=== PATIENT | female | born 1940 | race Hispanic/Latino ===

== ENCOUNTER 2017-04-27 14:27 | Inpatient (IN) | payer OTHER ==
[~2017-04-27] VITALS: Ht 157.5 cm; Wt 70.5 kg
[~2017-04-27 14:27] MED LIST: AMIO200T2 PO; ASPI-1005 PO; ATOR40TA69 PO; Acetaminophen PO; CARV3.1262 PO; CLOP75TA14 PO; DOCU-275 PO; FOLI0.8T22 PO; FURO20TA6 GT; FURO40TA7 PO; GLIP-196 PO; GLUC1KIT IM; INSREG SQ; INSU100V12 SQ; LORA0.5T83 PO; METO2.5T7 PO; MOM30 PO; PANT40TA25 PO; POTA20TA12 PO; TRAM50TA2 PO
[2017-04-27] MEDS ORDERED: IPRATROPIUM/ALBUTEROL SULFATE 3 ML SOLUTION IH ONE ×2 (15:05→18:37)
[2017-04-27 16:03] LABS: BASOPHILS % (AUTO) 0.5 % (0.0-5.0); EOSINOPHILS % (AUTO) 0.1 % (0.0-8.0); HEMATOCRIT 33.4 % (36-48); LYMPHOCYTES % (AUTO) 14.1 % (21.0-51.0); MEAN CORPUSCULAR HEMOGLOBIN 30.1 pg (27.0-33.0); MEAN CORPUSCULAR HGB CONC 35.2 g/dL (32.0-36.0); MEAN CORPUSCULAR VOLUME 85.6 fL (79-99); MONOCYTES % (AUTO) 6.6 % (3.0-13.0); NEUTROPHILS % (AUTO) 78.7 % (40.0-77.0); NUCLEATED RED BLOOD CELLS 0.1 % (0.0-0.19); PLATELET COUNT (AUTO) 195 K/uL (130-400); RED CELL DISTRIBUTION WIDTH 13.5 % (11.0-15.5)
[2017-04-27 16:21] LABS: CREATININE 1.5 mg/dL (0.5-1.5); POTASSIUM 5.3 mmol/L (3.5-5.1)
[2017-04-27 16:35] LABS: ALBUMIN 3.2 g/dL (3.5-5.0); BILIRUBIN,DIRECT 0.1 mg/dL (0.0-0.3); BILIRUBIN,TOTAL 0.7 mg/dL (0.2-1.0); CREATINE KINASE MB 7.2 ng/mL (0.5-3.6); TOTAL PROTEIN, SERUM 6.9 g/dL (6.0-8.3)
[2017-04-27] MEDS ORDERED: CEFTRIAXONE SODIUM 1 GM ONE (16:46)
[2017-04-27] MEDS ORDERED: AZITHROMYCIN 500MG+NS 250ML 250 ML IV ONE (16:55)
[2017-04-27] MEDS ORDERED: ONDANSETRON HCL 4 MG/2 ML VIAL IV PRN (17:45)
[2017-04-27] MEDS ORDERED: ACETAMINOPHEN 325 MG TAB PO PRN ×2 (17:45)
[2017-04-27] MEDS ORDERED: NITROGLYCERIN 0.4 MG SL TAB SL PRN (17:45)
[2017-04-27] MEDS ORDERED: MAG HYDROX/AL HYDROX/SIMETH ES 30 ML SUSP UDCUP PO PRN (17:45)
[2017-04-27] MEDS ORDERED: LACTULOSE 20 GM/30 ML UDCUP PO PRN (17:45)
[2017-04-27] MEDS ORDERED: LEVOFLOXACIN 500 MG/D5W 100 ML 100 ML IV SCH (17:45)
[2017-04-27] MEDS: LOSARTAN 50 MG TABLET PO SCH (18:00)
[2017-04-27] MEDS: ISOSORBIDE MONO 30MG TAB SR PO SCH (18:00)
[2017-04-27] MEDS: CLOPIDOGREL BISULFATE 75 MG TAB PO SCH (18:00)
[2017-04-27] MEDS: ASPIRIN 81 MG EC TAB PO SCH (18:00)
[2017-04-27] MEDS ORDERED: ASPIRIN 81MG TAB.CHEW ONE (18:14)
[2017-04-27] MEDS ORDERED: CLOPIDOGREL BISULFATE 75 MG TAB ONE (18:15)
[2017-04-27] MEDS ORDERED: LOSARTAN 50 MG TABLET ONE (18:15)
[2017-04-27] MEDS ORDERED: ISOSORBIDE MONO 30MG TAB SR PO ONE (18:15)
[2017-04-27] MEDS: IPRATROPIUM/ALBUTEROL SULFATE 3 ML SOLUTION IH PRN (18:40)
[2017-04-27] MEDS: CARVEDILOL 6.25 MG TABLET PO SCH (21:00)
[2017-04-27] MEDS: FAMOTIDINE/PF 20 MG/2 ML VIAL IV SCH (21:00)
[2017-04-28] VITALS (8 sets, daily range): BP systolic 102–129; BP diastolic 48–71
[2017-04-28] MEDS ORDERED: LEVOFLOXACIN 500 MG/D5W 100 ML 100 ML ONE (00:06)
[2017-04-28] MEDS ORDERED: CARVEDILOL 12.5 MG TABLET PO ONE (00:06)
[2017-04-28] MEDS ORDERED: FAMOTIDINE/PF 20 MG/2 ML VIAL IV ONE (00:06)
[2017-04-28] MEDS ORDERED: POTASSIUM CHLORIDE 20MEQ/100ML 100 ML IV PRN (02:00)
[2017-04-28] MEDS ORDERED: POTASSIUM CHLORIDE 10% ELIXIR 20 MEQ/15 ML UDCUP PO PRN (02:00)
[2017-04-28] MEDS ORDERED: DEXTROSE 50%-WATER 50 ML DISP.SYRIN IV PRN (02:00)
[2017-04-28] MEDS ORDERED: GLUCAGON 1MG KIT 1 MG ML IM PRN (02:00)
[2017-04-28] MEDS ORDERED: LIDOCAINE HCL-MPF 1% 2ML VIAL IVP PRN (02:00)
[2017-04-28] MEDS: IPRATROPIUM/ALBUTEROL SULFATE 3 ML SOLUTION IH PRN ×5 (06:30→21:37)
[2017-04-28] MEDS: INSULIN HUMULIN R 100 UNIT/ML 3ML SQ SCH ×4 (07:30→20:32)
[2017-04-28 07:57] LABS: CREATINE KINASE MB 3.6 ng/mL (0.5-3.6); CREATININE 1.7 mg/dL (0.5-1.5); POTASSIUM 4.2 mmol/L (3.5-5.1)
[2017-04-28 08:00] LABS: TROPONIN I 13.86 ng/mL (0.00-0.06)
[2017-04-28] MEDS ORDERED: POTA10TA14 PO (08:36)
[2017-04-28] MEDS ORDERED: NITR0.4T50 SL (08:36)
[2017-04-28] MEDS ORDERED: ISOS30TA6 PO (08:36)
[2017-04-28] MEDS ORDERED: METF500T6 PO (08:36)
[2017-04-28] MEDS ORDERED: CYAN50008 SL (08:36)
[2017-04-28] MEDS ORDERED: FURO20TA4 PO (08:36)
[2017-04-28] MEDS ORDERED: EZET10 PO (08:36)
[2017-04-28] MEDS ORDERED: MONT10TA24 PO (08:36)
[2017-04-28] MEDS ORDERED: MAGN400T40 PO (08:36)
[2017-04-28] MEDS ORDERED: FAMO20TA8 PO (08:36)
[2017-04-28] MEDS ORDERED: ROSU5TAB18 PO (08:36)
[2017-04-28] MEDS ORDERED: CHOL100018 PO (08:36)
[2017-04-28] MEDS: FAMOTIDINE/PF 20 MG/2 ML VIAL IV SCH ×2 (08:40→20:31)
[2017-04-28] MEDS: CARVEDILOL 6.25 MG TABLET PO SCH ×2 (08:40→20:32)
[2017-04-28] MEDS: CLOPIDOGREL BISULFATE 75 MG TAB PO SCH (08:40)
[2017-04-28] MEDS: ASPIRIN 81 MG EC TAB PO SCH (08:40)
[2017-04-28] MEDS: LOSARTAN 50 MG TABLET PO SCH (09:00)
[2017-04-28] MEDS: ISOSORBIDE MONO 30MG TAB SR PO SCH (09:00)
[2017-04-28] MEDS ORDERED: LEVOFLOXACIN 500 MG/D5W 100 ML 100 ML IV SCH (20:00)
[2017-04-28] MEDS: LEVOFLOXACIN 500 MG/D5W 100 ML 100 ML IV SCH (20:32)
[2017-04-29] MEDS: IPRATROPIUM/ALBUTEROL SULFATE 3 ML SOLUTION IH PRN ×6 (02:00→21:33)
[2017-04-29 03:30] VITALS: BP 104/52
[2017-04-29 04:38] LABS: HEMATOCRIT 29.4 % (36-48); MEAN CORPUSCULAR HGB CONC 35.5 g/dL (32.0-36.0); MEAN CORPUSCULAR VOLUME 84.6 fL (79-99); PLATELET COUNT (AUTO) 182 K/uL (130-400); RED BLOOD CELL COUNT(AUTO) 3.48 MIL/uL (4.00-5.50); RED CELL DISTRIBUTION WIDTH 13.6 % (11.0-15.5); WHITE BLOOD COUNT (AUTO) 7.8 K/uL (4.8-10.8)
[2017-04-29 04:49] LABS: CREATININE 1.7 mg/dL (0.5-1.5); POTASSIUM 3.8 mmol/L (3.5-5.1)
[2017-04-29 05:17] LABS: B-TYPE NATRIURETIC PEPTIDE 1580 pg/mL (0-100)
[2017-04-29] MEDS: INSULIN HUMULIN R 100 UNIT/ML 3ML SQ SCH ×4 (06:36→21:00)
[2017-04-29 07:39] VITALS: BP 112/60
[2017-04-29] MEDS: LOSARTAN 50 MG TABLET PO SCH (08:05)
[2017-04-29] MEDS: ISOSORBIDE MONO 30MG TAB SR PO SCH (08:05)
[2017-04-29] MEDS: ASPIRIN 81 MG EC TAB PO SCH (08:06)
[2017-04-29] MEDS: CARVEDILOL 6.25 MG TABLET PO SCH ×2 (08:06→21:04)
[2017-04-29] MEDS: CLOPIDOGREL BISULFATE 75 MG TAB PO SCH (08:06)
[2017-04-29] MEDS: FAMOTIDINE 20MG TAB 20 MG TAB PO SCH ×2 (08:19→21:04)
[2017-04-29] MEDS: GUAIFENESIN-DM 200/20 MG 10 ML PO PRN ×2 (09:05→14:14)
[2017-04-29 11:19] VITALS: BP 99/49
[2017-04-29 16:21] VITALS: BP 101/73
[2017-04-29] MEDS: LEVOFLOXACIN 500 MG/D5W 100 ML 100 ML IV SCH (19:37)
[2017-04-29 19:43] VITALS: BP 93/50
[2017-04-29] MEDS: LEVOFLOXACIN 250 MG/D5W 50ML 50 ML IVPB SCH (21:05)
[2017-04-29 23:33] VITALS: BP 102/51
[2017-04-30] VITALS (8 sets, daily range): BP systolic 100–123; BP diastolic 47–75
[2017-04-30] MEDS: IPRATROPIUM/ALBUTEROL SULFATE 3 ML SOLUTION IH PRN ×3 (01:09→21:52)
[2017-04-30 04:50] LABS: HEMATOCRIT 28.6 % (36-48); MEAN CORPUSCULAR HEMOGLOBIN 29.3 pg (27.0-33.0); MEAN CORPUSCULAR HGB CONC 34.9 g/dL (32.0-36.0); PLATELET COUNT (AUTO) 191 K/uL (130-400); RED BLOOD CELL COUNT(AUTO) 3.41 MIL/uL (4.00-5.50); RED CELL DISTRIBUTION WIDTH 13.8 % (11.0-15.5); WHITE BLOOD COUNT (AUTO) 8.5 K/uL (4.8-10.8)
[2017-04-30 05:07] LABS: ALBUMIN 2.5 g/dL (3.5-5.0); BILIRUBIN,DIRECT 0.1 mg/dL (0.0-0.3); BILIRUBIN,TOTAL 0.3 mg/dL (0.2-1.0); CREATININE 1.6 mg/dL (0.5-1.5); TOTAL PROTEIN, SERUM 6.1 g/dL (6.0-8.3)
[2017-04-30 05:16] LABS: B-TYPE NATRIURETIC PEPTIDE 1430 pg/mL (0-100)
[2017-04-30] MEDS: INSULIN HUMULIN R 100 UNIT/ML 3ML SQ SCH ×4 (06:26→21:12)
[2017-04-30] MEDS: ISOSORBIDE MONO 30MG TAB SR PO SCH (10:01)
[2017-04-30] MEDS: ASPIRIN 81 MG EC TAB PO SCH (10:02)
[2017-04-30] MEDS: CLOPIDOGREL BISULFATE 75 MG TAB PO SCH (10:02)
[2017-04-30] MEDS: LOSARTAN 50 MG TABLET PO SCH (10:02)
[2017-04-30] MEDS: CARVEDILOL 6.25 MG TABLET PO SCH ×2 (10:02→21:00)
[2017-04-30] MEDS: FAMOTIDINE 20MG TAB 20 MG TAB PO SCH ×2 (10:02→21:11)
[2017-04-30] MEDS ORDERED: INSULIN HUMULIN R 100 UNIT/ML 3ML SQ ONE (11:44)
[2017-04-30] MEDS: LEVOFLOXACIN 250 MG/D5W 50ML 50 ML IVPB SCH (21:11)
[2017-05-01 03:59] VITALS: BP 100/50
[2017-05-01 05:07] LABS: CREATININE 1.9 mg/dL (0.5-1.5); POTASSIUM 3.8 mmol/L (3.5-5.1)
[2017-05-01] MEDS: INSULIN HUMULIN R 100 UNIT/ML 3ML SQ SCH ×2 (05:56→12:01)
[2017-05-01] MEDS: POTASSIUM CHLORIDE 20 MEQ ERTAB PO PRN ×2 (06:17→08:24)
[2017-05-01 08:00] VITALS: BP 104/48
[2017-05-01] MEDS: FAMOTIDINE 20MG TAB 20 MG TAB PO SCH (08:33)
[2017-05-01] MEDS: ASPIRIN 81 MG EC TAB PO SCH (08:34)
[2017-05-01] MEDS: CARVEDILOL 6.25 MG TABLET PO SCH (08:35)
[2017-05-01] MEDS: CLOPIDOGREL BISULFATE 75 MG TAB PO SCH (08:35)
[2017-05-01] MEDS: LOSARTAN 50 MG TABLET PO SCH (08:36)
[2017-05-01] MEDS: ISOSORBIDE MONO 30MG TAB SR PO SCH (08:36)
[2017-05-01] MEDS ORDERED: FUROSEMIDE 20 MG TABLET PO SCH (09:00)
[2017-05-01] MEDS ORDERED: CLOP75TA14 PO (09:05)
[2017-05-01] MEDS ORDERED: LEVO250T2 PO (09:05)
[2017-05-01] MEDS ORDERED: LOSA50TA2 PO (09:05)
[2017-05-01 11:28] VITALS: BP 129/64
== END 2017-05-01 12:20 | disposition home or self-care (01) | DRG 280 ==
LOC: EDH 14:27 → OBSVTOIN 17:45 → EDHIP 17:45 → 2AH 04-28 00:20
PROVIDERS: ADMIT Family Medicine; ATTEND Family Medicine
DX: I21.4 Non-ST elevation (NSTEMI) myocardial infarction (principal); J18.9 Pneumonia, unspecified organism; E11.21 Type 2 diabetes mellitus with diabetic nephropathy; I13.0 Hypertensive heart and chronic kidney disease with heart failure and stage 1 through stage 4 chronic kidney disease, or unspecified chronic kidney disease; E11.51 Type 2 diabetes mellitus with diabetic peripheral angiopathy without gangrene; E11.65 Type 2 diabetes mellitus with hyperglycemia; I50.9 Heart failure, unspecified; E11.22 Type 2 diabetes mellitus with diabetic chronic kidney disease; E78.5 Hyperlipidemia, unspecified; I25.119 Atherosclerotic heart disease of native coronary artery with unspecified angina pectoris; I25.5 Ischemic cardiomyopathy; I49.3 Ventricular premature depolarization; I65.23 Occlusion and stenosis of bilateral carotid arteries; N18.3 Chronic kidney disease, stage 3 (moderate); I25.2 Old myocardial infarction; Z79.899 Other long term (current) drug therapy; Z90.710 Acquired absence of both cervix and uterus; Z95.0 Presence of cardiac pacemaker; Z95.5 Presence of coronary angioplasty implant and graft
CPT/HCPCS: 36415; 71046; 71250; 80048; 80076; 82550; 82553; 82948; 83605; 83874; 83880; 84484; 85025; 85027; 87040; 87804; 93005; 94640; 94664; 99291; J0456; J0696; J1815; J1956; J3490

== ENCOUNTER → 2017-07-26 | Outpatient (CLI) | payer OTHER ==
[~2017-07-26] MED LIST changes: -AMIO200T2 PO; +AMIO200T5 PO; -ATOR40TA69 PO; -Acetaminophen PO; +CHOL100018 PO; +CYAN50008 SL; -DOCU-275 PO; +EZET10 PO; +FAMO20TA8 PO; -FOLI0.8T22 PO; +FURO20TA4 PO; -FURO20TA6 GT; -FURO40TA7 PO; -GLUC1KIT IM; -INSREG SQ; -INSU100V12 SQ; +ISOS30TA6 PO; +LEVO250T2 PO; -LORA0.5T83 PO; +LOSA50TA2 PO; +MAGN400T40 PO; -METO2.5T7 PO; -MOM30 PO; +MONT10TA24 PO; +NITR0.4T50 SL; -PANT40TA25 PO; +POTA10TA14 PO; -POTA20TA12 PO; +ROSU5TAB11 PO; -TRAM50TA2 PO
== END | disposition home or self-care (01) ==
LOC: SHCH 14:58
PROVIDERS: ATTEND Internal Medicine Cardiovascular Disease
DX: I08.1 Rheumatic disorders of both mitral and tricuspid valves (principal); I27.20 Pulmonary hypertension, unspecified; Z95.0 Presence of cardiac pacemaker
CPT/HCPCS: 93306

== ENCOUNTER 2018-06-28 13:01 | Emergency (ER) | payer OTHER ==
[2018-06-28] MEDS ORDERED: ASPIRIN 325 MG TABLET ONE (13:31)
[2018-06-28 13:35] LABS: BASOPHILS % (AUTO) 0.7 % (0.0-5.0); EOSINOPHILS % (AUTO) 3.3 % (0.0-8.0); HEMATOCRIT 32.2 % (36-48); LYMPHOCYTES % (AUTO) 14.2 % (21.0-51.0); MEAN CORPUSCULAR HEMOGLOBIN 30.5 pg (27.0-33.0); MEAN CORPUSCULAR HGB CONC 33.8 g/dL (32.0-36.0); MEAN CORPUSCULAR VOLUME 90.4 fL (79-99); MONOCYTES % (AUTO) 6.4 % (3.0-13.0); NEUTROPHILS % (AUTO) 75.4 % (40.0-77.0); PLATELET COUNT (AUTO) 153 K/uL (130-400); RED BLOOD CELL COUNT(AUTO) 3.56 MIL/uL (4.00-5.50); RED CELL DISTRIBUTION WIDTH 13.4 % (11.0-15.5); WHITE BLOOD COUNT (AUTO) 9.4 K/uL (4.8-10.8)
[2018-06-28 14:13] LABS: CREATININE 3.2 mg/dL (0.5-1.5); POTASSIUM 4.7 mmol/L (3.5-5.1)
[2018-06-28 14:17] LABS: ALBUMIN 3.5 g/dL (3.5-5.0); BILIRUBIN,TOTAL 0.5 mg/dL (0.2-1.0); TOTAL PROTEIN, SERUM 7.2 g/dL (6.0-8.3)
[2018-06-28] MEDS ORDERED: METHYLPREDNISOLONE SOD SUCC 125MG/2ML VIAL ONE (14:21)
[2018-06-28 14:41] LABS: B-TYPE NATRIURETIC PEPTIDE 2360 pg/mL (0-100)
[2018-06-28] MEDS ORDERED: IPRATROPIUM/ALBUTEROL SULFATE 3 ML SOLUTION IH ONE (14:47)
[2018-06-28] MEDS ORDERED: FUROSEMIDE 10 MG/ML 4ML VIAL ONE (17:02)
== END 2018-06-28 17:25 | disposition home or self-care (01) ==
LOC: EDH 13:01
DX: I50.9 Heart failure, unspecified (principal); R06.00 Dyspnea, unspecified; I25.10 Atherosclerotic heart disease of native coronary artery without angina pectoris; E11.9 Type 2 diabetes mellitus without complications; E78.5 Hyperlipidemia, unspecified; Z95.1 Presence of aortocoronary bypass graft; Z90.710 Acquired absence of both cervix and uterus
CPT/HCPCS: 36415; 71045; 80053; 82550; 83880; 84484; 85025; 93005; 94640; 96374; 96375; 99285; J1940; J2930

== ENCOUNTER 2018-07-28 17:18 | Emergency (ER) | payer OTHER ==
[2018-07-28 17:57] LABS: BASOPHILS % (AUTO) 1.2 % (0.0-5.0); EOSINOPHILS % (AUTO) 3.3 % (0.0-8.0); HEMATOCRIT 32.6 % (36-48); LYMPHOCYTES % (AUTO) 15.4 % (21.0-51.0); MEAN CORPUSCULAR HEMOGLOBIN 29.6 pg (27.0-33.0); MEAN CORPUSCULAR HGB CONC 33.8 g/dL (32.0-36.0); MEAN CORPUSCULAR VOLUME 87.5 fL (79-99); MONOCYTES % (AUTO) 6.6 % (3.0-13.0); NEUTROPHILS % (AUTO) 73.5 % (40.0-77.0); PLATELET COUNT (AUTO) 185 K/uL (130-400); RED BLOOD CELL COUNT(AUTO) 3.73 MIL/uL (4.00-5.50); RED CELL DISTRIBUTION WIDTH 13.7 % (11.0-15.5); WHITE BLOOD COUNT (AUTO) 8.6 K/uL (4.8-10.8)
[2018-07-28 18:15] LABS: ALBUMIN 3.4 g/dL (3.5-5.0); BILIRUBIN,DIRECT 0.1 mg/dL (0.0-0.3); BILIRUBIN,TOTAL 1.1 mg/dL (0.2-1.0); CREATININE 3.4 mg/dL (0.5-1.5); POTASSIUM 4.9 mmol/L (3.5-5.1)
[2018-07-28 18:18] LABS: B-TYPE NATRIURETIC PEPTIDE 2210 pg/mL (0-100)
[2018-07-28] MEDS ORDERED: FUROSEMIDE 10 MG/ML 4ML VIAL ONE (19:35)
== END 2018-07-28 21:41 | disposition home or self-care (01) ==
LOC: EDH 17:18
DX: I11.0 Hypertensive heart disease with heart failure (principal); I50.9 Heart failure, unspecified; R06.00 Dyspnea, unspecified; E78.5 Hyperlipidemia, unspecified; E11.9 Type 2 diabetes mellitus without complications; I25.10 Atherosclerotic heart disease of native coronary artery without angina pectoris
CPT/HCPCS: 36415; 71045; 80048; 80076; 83880; 84484; 85025; 93005; 96374; 99285; J1940

== ENCOUNTER 2018-07-30 00:59 | Observation (INO) | payer OTHER ==
[~2018-07-30] VITALS: Ht 160 cm; Wt 66.2 kg
[2018-07-30 01:42] LABS: BASOPHILS % (AUTO) 1.5 % (0.0-5.0); EOSINOPHILS % (AUTO) 2.9 % (0.0-8.0); HEMATOCRIT 35.1 % (36-48); LYMPHOCYTES % (AUTO) 17.6 % (21.0-51.0); MEAN CORPUSCULAR HGB CONC 33.2 g/dL (32.0-36.0); MEAN CORPUSCULAR VOLUME 87.5 fL (79-99); MONOCYTES % (AUTO) 8.7 % (3.0-13.0); NEUTROPHILS % (AUTO) 69.3 % (40.0-77.0); PLATELET COUNT (AUTO) 188 K/uL (130-400); RED BLOOD CELL COUNT(AUTO) 4.01 MIL/uL (4.00-5.50); WHITE BLOOD COUNT (AUTO) 8.7 K/uL (4.8-10.8)
[2018-07-30 01:54] LABS: ALBUMIN 3.7 g/dL (3.5-5.0); BILIRUBIN,TOTAL 0.5 mg/dL (0.2-1.0); CREATININE 3.5 mg/dL (0.5-1.5); POTASSIUM 4.1 mmol/L (3.5-5.1); TOTAL PROTEIN, SERUM 7.2 g/dL (6.0-8.3)
[2018-07-30 01:57] LABS: INR 1.01 (0.85-1.15); PARTIAL THROMBOPLASTIN TIME 25.9 SEC (26.3-35.5); PROTHROMBIN TIME 10.6 SEC (9.6-11.6)
[2018-07-30 02:12] LABS: B-TYPE NATRIURETIC PEPTIDE 2260 pg/mL (0-100)
[2018-07-30] MEDS ORDERED: NITROGLYCERIN 1GM/1 INCH PACKET TD ONE (02:58)
[2018-07-30] MEDS ORDERED: ASPIRIN 325 MG TABLET ONE (02:58)
[2018-07-30] MEDS ORDERED: FUROSEMIDE 10 MG/ML 4ML VIAL ONE (02:58)
[2018-07-30] MEDS ORDERED: ZOLPIDEM TARTRATE 5 MG TAB PO PRN (03:00)
[2018-07-30] MEDS ORDERED: ACETAMINOPHEN-CODEINE 300/30MG TAB PO PRN (03:00)
[2018-07-30] MEDS ORDERED: ACETAMINOPHEN 325 MG TAB PO PRN (03:00)
[2018-07-30] MEDS ORDERED: GUAIFENESIN-DM 200/20 MG 10 ML PO PRN (03:00)
[2018-07-30] MEDS ORDERED: LACTULOSE 20 GM/30 ML UDCUP PO PRN (03:00)
[2018-07-30] MEDS ORDERED: ONDANSETRON HCL 4 MG/2 ML VIAL IV PRN (03:00)
[2018-07-30] MEDS ORDERED: HYDROMORPHONE 1 MG/1 ML AMP IV PRN (03:00)
[2018-07-30 03:03] LABS: APPEARANCE,URINE Clear (CLEAR); BILIRUBIN,URINE Negative (NEGATIVE); COLOR,URINE Yellow (YELLOW); GLUCOSE, URINE (UA) Negative (NEGATIVE); KETONES,URINE Negative (NEGATIVE); LEUKOCYTE ESTERASE ,URINE Large (NEGATIVE); NITRATE,URINE Negative (NEGATIVE); OCCULT BLOOD,URINE Negative (NEGATIVE); PH,URINE 7.5 (5.0-8.0); PROTEIN,URINE Negative (NEGATIVE); UROBILINOGEN,URINE 0.2 mg/dL (0.2-1.0)
[2018-07-30 03:30] VITALS: BP 153/81
--- NOTE | 2018-07-30 03:30 | NUR ---
ADMISSION. PT TRANSFERRED FROM ER INTO ROOM 430. PT AWAKE, ALERT AND RESPONSIVE, NO S/O PAIN OR DISCOMFORT AT THIS TIME. PT ORIENTED TO ROOM, CALL HUANG WITHIN REACH, BED IN LOWEST POSITION. Addendum: 07/30/18 at 0403 by DINO LAZARO RN Amended: Links added.
[2018-07-30 03:48] LABS: BACTERIA,URINE Few /HPF (None Seen); RBC,URINE None Seen /HPF (0-1); SQUAMOUS EPITHELIAL CELL,UR Moderate /HPF (0-2)
[2018-07-30] MEDS ORDERED: SACU1TAB PO (05:34)
[2018-07-30] MEDS ORDERED: ACAR25TA2 PO (05:34)
[2018-07-30] MEDS ORDERED: TRAZ-185 PO (05:34)
[2018-07-30] MEDS ORDERED: FOLI1TAB85 PO (05:34)
[2018-07-30] MEDS ORDERED: ALPR0.25 PO (05:34)
[2018-07-30] MEDS ORDERED: METO5TAB7 PO (05:34)
[2018-07-30] MEDS ORDERED: METO-391 PO (05:34)
[2018-07-30] MEDS ORDERED: NPH,100V SQ ×2 (05:38)
[2018-07-30] MEDS ORDERED: ALPRAZOLAM 0.25 MG TABLET PO PRN ×2 (05:45→14:00)
[2018-07-30] MEDS ORDERED: TRAZODONE HCL 50 MG TAB PO PRN (05:45)
[2018-07-30 08:15] VITALS: BP 117/56
[2018-07-30] MEDS ORDERED: ACARBOSE 25 MG TABLET PO SCH (09:00)
[2018-07-30] MEDS ORDERED: Metoprolol Succinate 50 MG PO SCH (09:00)
[2018-07-30] MEDS: Cholecalciferol (Vitamin D3) (Vitamin D3) 1,000 UNIT PO SCH ×2 (09:00→21:00)
[2018-07-30] MEDS ORDERED: LOSARTAN 50 MG TABLET PO SCH (09:00)
[2018-07-30] MEDS ORDERED: CYANOCOBALAMIN (VITAMIN B-12) 1,000 MCG TABLET PO SCH (09:00)
[2018-07-30] MEDS: Sacubitril/Valsartan (Entresto 24 mg-26 mg Tablet) PO SCH ×2 (09:00→21:00)
[2018-07-30] MEDS: INSULIN NPH 100 UNIT/ML 3ML SQ SCH (09:55)
[2018-07-30] MEDS: GLIPIZIDE XL 10MG TAB PO SCH ×2 (10:08→21:14)
[2018-07-30] MEDS: POTASSIUM CHLORIDE 10 MEQ/TAB.SA PO SCH (10:08)
[2018-07-30] MEDS: FAMOTIDINE 20MG TAB 20 MG TAB PO SCH (10:09)
[2018-07-30] MEDS: FUROSEMIDE 10 MG/ML 4ML VIAL IVP SCH (10:09)
[2018-07-30] MEDS: FOLIC ACID/VITAMIN B COMP W-C 1 MG CAPSULE PO SCH (10:09)
[2018-07-30 12:56] VITALS: BP 129/64
[2018-07-30] MEDS ORDERED: SENNOSIDES 8.6 MG TABLET PO SCH (14:00)
[2018-07-30 16:19] VITALS: BP 133/73
--- NOTE | 2018-07-30 16:30 | NUR ---
INITIAL MET W PT ALONE, AAOX3, LIVES W SPOUSE HENRI, WHO WILL PROVIDE TRANSPORT- PT STATES SHE DOES NOT DRIVE MUCH ANY MORE, IS INDEPENDENT OF ADLS, HAS A ROLLR WKR, AND A SHOWER CHAIR, HAS HOME HEALTH BUT DOES NOT REMEMBER THEIR NAME, DR. REESE SENT THEM, DCP IS HOME , CM TO FOLLOW Addendum: 07/30/18 at 1832 by JULIUS LOZOYA RN CM Amended: Links added.
[2018-07-30] MEDS ORDERED: INSULIN NPH 100 UNIT/ML 3ML SQ SCH (17:00)
[2018-07-30 19:05] VITALS: BP 125/68
[2018-07-30] MEDS: BUDESONIDE 0.5 MG/2 ML INH IH SCH (20:41)
[2018-07-30] MEDS: IPRATROPIUM/ALBUTEROL SULFATE 3 ML SOLUTION IH SCH (20:42)
[2018-07-30] MEDS: CARVEDILOL 3.125 MG TABLET PO SCH (21:15)
[2018-07-30 23:03] VITALS: BP 136/67
[2018-07-31] VITALS (7 sets, daily range): BP systolic 85–130; BP diastolic 42–65
[2018-07-31 04:04] LABS: ABG BASE EXCESS 5.8 mmol/L (-2.0-3.0); ABG HCO3 30.2 mmol/L (21.0-28.0); ABG OXYGEN SATURATION 96.2 % (95.0-99.0); ABG PCO2 43 mmHg (32-45)
[2018-07-31 05:40] LABS: HEMATOCRIT 30.7 % (36-48); MEAN CORPUSCULAR HEMOGLOBIN 29.2 pg (27.0-33.0); MEAN CORPUSCULAR HGB CONC 33.7 g/dL (32.0-36.0); MEAN CORPUSCULAR VOLUME 86.6 fL (79-99); PLATELET COUNT (AUTO) 197 K/uL (130-400); RED BLOOD CELL COUNT(AUTO) 3.55 MIL/uL (4.00-5.50); RED CELL DISTRIBUTION WIDTH 13.6 % (11.0-15.5); WHITE BLOOD COUNT (AUTO) 9.3 K/uL (4.8-10.8)
[2018-07-31 05:57] LABS: INR 1.03 (0.85-1.15); PROTHROMBIN TIME 10.8 SEC (9.6-11.6)
[2018-07-31 06:09] LABS: ALBUMIN 3.1 g/dL (3.5-5.0); CREATININE 3.4 mg/dL (0.5-1.5); POTASSIUM 3.7 mmol/L (3.5-5.1); THYROID STIMULATING HORMONE 2.01 uIU/mL (0.36-3.74)
[2018-07-31] MEDS: BUDESONIDE 0.5 MG/2 ML INH IH SCH ×2 (06:12→19:12)
[2018-07-31] MEDS: IPRATROPIUM/ALBUTEROL SULFATE 3 ML SOLUTION IH SCH ×5 (06:12→23:02)
--- NOTE | 2018-07-31 08:00 | NUR ---
Patient awake, sitting up to the bedside chair having breakfast, will recheck Blood sugar after breakfast to administer scheduled insulin. Denies SOB or dizziness.
[2018-07-31] MEDS: HYDRALAZINE HCL 10 MG TABLET PO SCH ×3 (09:00→21:37)
[2018-07-31] MEDS: FAMOTIDINE 20MG TAB 20 MG TAB PO SCH (09:02)
[2018-07-31] MEDS: FUROSEMIDE 10 MG/ML 4ML VIAL IVP SCH (09:03)
[2018-07-31] MEDS: GLIPIZIDE XL 10MG TAB PO SCH (09:03)
[2018-07-31] MEDS: ISOSORBIDE MONO 30MG TAB SR PO SCH (09:03)
[2018-07-31] MEDS: INSULIN NPH 100 UNIT/ML 3ML SQ SCH ×2 (09:19→17:47)
[2018-07-31] MEDS: FOLIC ACID/VITAMIN B COMP W-C 1 MG CAPSULE PO SCH (09:28)
[2018-07-31] MEDS: POTASSIUM CHLORIDE 10 MEQ/TAB.SA PO SCH (09:29)
[2018-07-31] MEDS: Cholecalciferol (Vitamin D3) (Vitamin D3) 1,000 UNIT PO SCH ×3 (11:07→21:41)
--- NOTE | 2018-07-31 11:30 | NUR ---
DCP PLAN DISCUSSED PLAN OF CARE W INSURANCE REP- NO DC YET, MED ADJUSTIMENT, POSS DC TOMORROW, OBS U, PT W/O MATTEONEA Addendum: 08/01/18 at 8900 by JULIUS LOZOYA RN CM Amended: Links added.
--- NOTE | 2018-07-31 14:10 | NUR ---
Dr Kilpatrick visited with patient, informed him of low blood pressure episode earlier and that Dr Rodrigues had adjusted medications. Pt informed Dr Kilpatrick that she has been having pain to her legs and that normally Tylenol helps her pain at home. Dr Kilpatrick also made aware of pt not being able to have a BM sine 07/27, he gave orders.
[2018-07-31] MEDS: CARVEDILOL 3.125 MG TABLET PO SCH ×2 (14:24→21:37)
[2018-07-31] MEDS ORDERED: LACTULOSE 20 GM/30 ML UDCUP PO PRN (15:00)
--- NOTE | 2018-07-31 17:41 | NUR ---
RD Notification Pt with improved appetite as per Pt (PO 75-100%). Pt reports constipation - Rec to add stool softener/laxative as medically feasible for constipation. Pt LBM 07/27/18. Pt monitored labs: Glu 150, Cl 100, BUN 89, Cr 3.4, GFR 14, P 6.0, Mg 3.00, Alb 3.1. Altered renal labs; Rec to add Renal non-dialysis diet. RD to continue to monitor. Please notify RD as nutritional concerns arise. Thank you. Addendum: 07/31/18 at [address] Amended: Links added.
[2018-07-31] MEDS: INSULIN HUMULIN R 100 UNIT/ML 3ML SQ SCH (21:59)
[2018-08-01] MEDS ORDERED: DEXTROSE 50%-WATER 50 ML DISP.SYRIN IV ONE (01:52)
[2018-08-01] MEDS ORDERED: DEXTROSE 50%-WATER 50 ML DISP.SYRIN IV PRN (02:00)
[2018-08-01] MEDS ORDERED: GLUCAGON 1MG KIT 1 MG ML IM PRN (02:00)
[2018-08-01 03:23] VITALS: BP 115/58
[2018-08-01 05:39] LABS: HEMATOCRIT 29.4 % (36-48); MEAN CORPUSCULAR HEMOGLOBIN 29.8 pg (27.0-33.0); MEAN CORPUSCULAR HGB CONC 34.6 g/dL (32.0-36.0); PLATELET COUNT (AUTO) 158 K/uL (130-400); RED BLOOD CELL COUNT(AUTO) 3.42 MIL/uL (4.00-5.50); WHITE BLOOD COUNT (AUTO) 10.6 K/uL (4.8-10.8)
[2018-08-01 05:53] LABS: CREATININE 3.8 mg/dL (0.5-1.5); PHOSPHORUS 5.5 mg/dL (2.5-4.9); POTASSIUM 3.7 mmol/L (3.5-5.1)
[2018-08-01] MEDS: IPRATROPIUM/ALBUTEROL SULFATE 3 ML SOLUTION IH SCH ×2 (06:23→10:58)
[2018-08-01] MEDS: BUDESONIDE 0.5 MG/2 ML INH IH SCH (06:23)
[2018-08-01] MEDS: INSULIN HUMULIN R 100 UNIT/ML 3ML SQ SCH ×3 (06:44→16:30)
[2018-08-01] MEDS ORDERED: INSULIN NPH 100 UNIT/ML 3ML SQ SCH (08:00)
[2018-08-01 08:03] VITALS: BP 142/69
[2018-08-01] MEDS ORDERED: GLIPIZIDE XL 10MG TAB PO SCH (09:00)
[2018-08-01] MEDS ORDERED: CYANOCOBALAMIN (VITAMIN B-12) 1,000 MCG TABLET PO SCH (09:00)
[2018-08-01] MEDS: ISOSORBIDE MONO 30MG TAB SR PO SCH (09:30)
[2018-08-01] MEDS: FUROSEMIDE 40 MG TABLET PO SCH ×2 (09:30→17:00)
[2018-08-01] MEDS: FOLIC ACID/VITAMIN B COMP W-C 1 MG CAPSULE PO SCH (09:30)
[2018-08-01] MEDS: POTASSIUM CHLORIDE 10 MEQ/TAB.SA PO SCH (09:31)
[2018-08-01] MEDS: HYDRALAZINE HCL 10 MG TABLET PO SCH ×2 (09:31→14:29)
[2018-08-01] MEDS: FAMOTIDINE 20MG TAB 20 MG TAB PO SCH (09:32)
[2018-08-01] MEDS: CARVEDILOL 3.125 MG TABLET PO SCH (09:34)
[2018-08-01 11:40] VITALS: BP 135/66
[2018-08-01 16:38] VITALS: BP 131/65
[2018-08-01] MEDS: INSULIN NPH 100 UNIT/ML 3ML SQ SCH (17:00)
== END 2018-08-01 19:00 | disposition home or self-care (01) ==
LOC: EDH 00:59 → EDHIP 02:49 → 4AH 03:09
PROVIDERS: ADMIT Internal Medicine Critical Care Medicine; ATTEND Internal Medicine Critical Care Medicine
DX: I13.0 Hypertensive heart and chronic kidney disease with heart failure and stage 1 through stage 4 chronic kidney disease, or unspecified chronic kidney disease (principal); I50.23 Acute on chronic systolic (congestive) heart failure; N18.4 Chronic kidney disease, stage 4 (severe); I25.10 Atherosclerotic heart disease of native coronary artery without angina pectoris; N17.9 Acute kidney failure, unspecified; E11.22 Type 2 diabetes mellitus with diabetic chronic kidney disease; E78.5 Hyperlipidemia, unspecified; E87.1 Hypo-osmolality and hyponatremia; J45.909 Unspecified asthma, uncomplicated; F41.9 Anxiety disorder, unspecified; I25.2 Old myocardial infarction; I25.5 Ischemic cardiomyopathy; F32.9 Major depressive disorder, single episode, unspecified; Z79.02 Long term (current) use of antithrombotics/antiplatelets; Z79.4 Long term (current) use of insulin; Z79.899 Other long term (current) drug therapy; Z86.79 Personal history of other diseases of the circulatory system; Z95.0 Presence of cardiac pacemaker; Z95.1 Presence of aortocoronary bypass graft
CPT/HCPCS: 36415 ×3; 36600; 71045; 80048; 80053; 80069; 81001; 82550; 82803; 82947; 82948 ×20; 83605; 83735 ×2; 83880; 84100; 84443; 84484; 85025; 85027 ×2; 85610 ×2; 85730 ×2; 93005 ×2; 93306; 94640 ×11; 94664; 96372 ×3; 96374; 96375; 96376; 99291; G0378 ×60; J1815 ×7; J1940 ×3; J7070 ×2

== ENCOUNTER 2018-09-08 11:45 | Emergency (ER) | payer OTHER ==
[~2018-09-08 11:45] MED LIST changes: +ACAR25TA2 PO; +ALPR0.25 PO; +FOLI1TAB85 PO; -LEVO250T2 PO; -LOSA50TA2 PO; -MAGN400T40 PO; +METO5TAB7 PO; +NPH,100V SQ; -ROSU5TAB11 PO; +ROSU5TAB12 PO; +TRAZ-185 PO
[2018-09-08 12:24] LABS: APPEARANCE,URINE CLEAR (CLEAR); BILIRUBIN,URINE NEGATIVE (NEGATIVE); COLOR,URINE YELLOW (YELLOW); GLUCOSE, URINE (UA) >=1000 mg/dL (NEGATIVE); KETONES,URINE NEGATIVE (NEGATIVE); LEUKOCYTE ESTERASE ,URINE NEGATIVE (NEGATIVE); NITRATE,URINE NEGATIVE (NEGATIVE); OCCULT BLOOD,URINE TRACE-INTACT (NEGATIVE); PROTEIN,URINE TRACE mg/dL (NEGATIVE); UROBILINOGEN,URINE 0.2 mg/dL (0.2-1.0)
[2018-09-08 12:24] LABS: BASOPHILS % (AUTO) 0.9 % (0.0-5.0); HEMATOCRIT 35.9 % (36-48); LYMPHOCYTES % (AUTO) 9.5 % (21.0-51.0); MEAN CORPUSCULAR HEMOGLOBIN 27.4 pg (27.0-33.0); MEAN CORPUSCULAR HGB CONC 32.3 g/dL (32.0-36.0); MEAN CORPUSCULAR VOLUME 84.7 fL (79-99); MONOCYTES % (AUTO) 4.9 % (3.0-13.0); NEUTROPHILS % (AUTO) 83.7 % (40.0-77.0); PLATELET COUNT (AUTO) 188 K/uL (130-400); RED BLOOD CELL COUNT(AUTO) 4.24 MIL/uL (4.00-5.50); RED CELL DISTRIBUTION WIDTH 15.7 % (11.0-15.5); WHITE BLOOD COUNT (AUTO) 11.1 K/uL (4.8-10.8)
[2018-09-08 12:27] LABS: CREATININE 2.5 mg/dL (0.5-1.5); POTASSIUM 3.5 mmol/L (3.5-5.1)
[2018-09-08 12:34] LABS: ALBUMIN 3.4 g/dL (3.5-5.0); BILIRUBIN,TOTAL 0.7 mg/dL (0.2-1.0); TOTAL PROTEIN, SERUM 7.1 g/dL (6.0-8.3)
[2018-09-08 12:39] LABS: RBC,URINE 0-1 /HPF (0-1); WBC,URINE 0-1 /HPF (0-1)
[2018-09-08 12:40] LABS: BACTERIA,URINE Rare /HPF (None Seen); SQUAMOUS EPITHELIAL CELL,UR 0-2 /HPF (0-2)
[2018-09-08] MEDS ORDERED: SODIUM CHLORIDE 0.9% 1000ML 1,000 ML IV ONE (12:41)
[2018-09-08] MEDS ORDERED: LACTULOSE 20 GM/30 ML UDCUP ONE (13:51)
[2018-09-08] MEDS ORDERED: MAGNESIUM HYDROXIDE 30 ML/UDCUP ONE (13:51)
[2018-09-08] MEDS ORDERED: ONDANSETRON HCL 4 MG/2 ML VIAL ONE (13:51)
== END 2018-09-08 14:50 | disposition home or self-care (01) ==
LOC: EDH 11:45
DX: K59.00 Constipation, unspecified (principal); R11.2 Nausea with vomiting, unspecified; I25.810 Atherosclerosis of coronary artery bypass graft(s) without angina pectoris; E11.9 Type 2 diabetes mellitus without complications; E78.5 Hyperlipidemia, unspecified; I10 Essential (primary) hypertension; Z90.710 Acquired absence of both cervix and uterus; Z87.891 Personal history of nicotine dependence
CPT/HCPCS: 36415; 74176; 80053; 81001; 83605; 83690; 85025; 96361; 96374; 99285; J2405; J7030

== ENCOUNTER 2018-10-20 10:32 | Inpatient (IN) | payer OTHER ==
[~2018-10-20] VITALS: Ht 157.5 cm; Wt 72.9 kg
[~2018-10-20 10:32] MED LIST changes: -EZET10 PO; +EZET10TA13 PO
[2018-10-20 11:25] LABS: BASOPHILS % (AUTO) 1.4 % (0.0-5.0); EOSINOPHILS % (AUTO) 6.3 % (0.0-8.0); LYMPHOCYTES % (AUTO) 13.9 % (21.0-51.0); MEAN CORPUSCULAR HEMOGLOBIN 25.7 pg (27.0-33.0); MEAN CORPUSCULAR HGB CONC 32.2 g/dL (32.0-36.0); MEAN CORPUSCULAR VOLUME 79.6 fL (79-99); NEUTROPHILS % (AUTO) 70.4 % (40.0-77.0); NUCLEATED RED BLOOD CELLS 0.1 % (0.0-0.19); PLATELET COUNT (AUTO) 136 K/uL (130-400); RED BLOOD CELL COUNT(AUTO) 4.27 MIL/uL (4.00-5.50); RED CELL DISTRIBUTION WIDTH 17.2 % (11.0-15.5); WHITE BLOOD COUNT (AUTO) 7.6 K/uL (4.8-10.8)
[2018-10-20 11:34] LABS: ALBUMIN 2.7 g/dL (3.5-5.0); BILIRUBIN,DIRECT 0.4 mg/dL (0.0-0.3); BILIRUBIN,TOTAL 0.8 mg/dL (0.2-1.0); CREATININE 3.3 mg/dL (0.5-1.5); POTASSIUM 3.8 mmol/L (3.5-5.1); TOTAL PROTEIN, SERUM 6.3 g/dL (6.0-8.3)
[2018-10-20 12:13] LABS: B-TYPE NATRIURETIC PEPTIDE 2120 pg/mL (0-100)
[2018-10-20 12:58] LABS: INR 1.03 (0.85-1.15); PARTIAL THROMBOPLASTIN TIME 27.2 SEC (26.3-35.5); PROTHROMBIN TIME 10.8 SEC (9.6-11.6)
[2018-10-20 13:08] LABS: APPEARANCE,URINE Clear (CLEAR); BILIRUBIN,URINE Negative (NEGATIVE); COLOR,URINE Yellow (YELLOW); GLUCOSE, URINE (UA) TRACE mg/dL (NEGATIVE); KETONES,URINE Negative (NEGATIVE); LEUKOCYTE ESTERASE ,URINE Trace (NEGATIVE); NITRATE,URINE Negative (NEGATIVE); OCCULT BLOOD,URINE Negative (NEGATIVE); PROTEIN,URINE Negative (NEGATIVE)
[2018-10-20 13:36] LABS: BACTERIA,URINE Rare /HPF (None Seen); RBC,URINE None Seen /HPF (0-1)
[2018-10-20 13:37] LABS: RENAL EPITHELIAL CELLS,URINE Rare /HPF (None Seen); TRANSITIONAL EPI CELLS,URINE Few /HPF (None Seen)
[2018-10-20] MEDS ORDERED: MAGNESIUM 2GM PREMIX 50ML 50 ML IV PRN (14:45)
[2018-10-20] MEDS: FUROSEMIDE 10 MG/ML 4ML VIAL IVP SCH ×2 (14:45→20:45)
[2018-10-20] MEDS ORDERED: LACTULOSE 20 GM/30 ML UDCUP PO PRN (14:45)
[2018-10-20] MEDS ORDERED: HYDRALAZINE HCL 20 MG/ML VIAL IV PRN (14:45)
[2018-10-20] MEDS ORDERED: LIDOCAINE HCL-MPF 1% 2ML VIAL IJ PRN (14:45)
[2018-10-20] MEDS ORDERED: DIPHENHYDRAMINE HCL 25 MG CAPSULE PO PRN (14:45)
[2018-10-20] MEDS ORDERED: ONDANSETRON HCL 4 MG/2 ML VIAL IV PRN (14:45)
[2018-10-20] MEDS ORDERED: MAG HYDROX/AL HYDROX/SIMETH ES 30 ML SUSP UDCUP PO PRN (14:45)
[2018-10-20] MEDS ORDERED: DiphenhydrAMINE HCL 50 MG/ML VIAL IV PRN (14:45)
[2018-10-20] MEDS ORDERED: ZOLPIDEM TARTRATE 5 MG TAB PO PRN (14:45)
[2018-10-20] MEDS ORDERED: MORPHINE SULFATE 4 MG/1ML SYG IV PRN (14:45)
[2018-10-20] MEDS ORDERED: POTASSIUM CHLORIDE 10MEQ/100ML 100 ML IV PRN (14:45)
[2018-10-20] MEDS ORDERED: NITROGLYCERIN 0.4 MG SL TAB SL PRN (14:45)
[2018-10-20] MEDS ORDERED: ACETAMINOPHEN 325 MG TAB PO PRN ×2 (14:45)
[2018-10-20 15:43] LABS: ABG BASE EXCESS -1.6 mmol/L (-2.0-3.0); ABG HCO3 22.3 mmol/L (21.0-28.0); ABG OXYGEN SATURATION 96.1 % (95.0-99.0); ABG PCO2 36 mmHg (32-45)
[2018-10-20] MEDS: INSULIN HUMULIN R 100 UNIT/ML 3ML SQ SCH ×2 (16:30→21:00)
[2018-10-20] MEDS ORDERED: FUROSEMIDE 10 MG/ML 2ML VIAL ONE (16:38)
[2018-10-20] MEDS ORDERED: INSULIN HUMULIN R 100 UNIT/ML 3ML ONE (17:49)
[2018-10-20] MEDS ORDERED: LORAZEPAM 2 MG/ML 1 ML VIAL ONE (19:50)
[2018-10-20] MEDS: HEPARIN SODIUM 5000UNIT/ML 1ML VIAL SQ SCH (21:00)
[2018-10-20] MEDS: INSULIN GLARGINE 100 UNITS/ML 10 ML VIAL SQ SCH (21:00)
[2018-10-21] VITALS (7 sets, daily range): BP systolic 94–126; BP diastolic 55–68
[2018-10-21] MEDS: FUROSEMIDE 10 MG/ML 4ML VIAL IVP SCH (03:35)
[2018-10-21 06:05] LABS: BASOPHILS % (AUTO) 1.3 % (0.0-5.0); EOSINOPHILS % (AUTO) 5.1 % (0.0-8.0); HEMATOCRIT 33.6 % (36-48); LYMPHOCYTES % (AUTO) 18.4 % (21.0-51.0); MEAN CORPUSCULAR HEMOGLOBIN 25.8 pg (27.0-33.0); MONOCYTES % (AUTO) 10.1 % (3.0-13.0); NEUTROPHILS % (AUTO) 65.1 % (40.0-77.0); PLATELET COUNT (AUTO) 147 K/uL (130-400); RED CELL DISTRIBUTION WIDTH 17.2 % (11.0-15.5)
[2018-10-21 06:20] LABS: INR 1.05 (0.85-1.15); PARTIAL THROMBOPLASTIN TIME 26.8 SEC (26.3-35.5)
[2018-10-21] MEDS: INSULIN HUMULIN R 100 UNIT/ML 3ML SQ SCH ×4 (06:28→21:58)
[2018-10-21 06:30] LABS: ALBUMIN 2.7 g/dL (3.5-5.0); BILIRUBIN,TOTAL 0.9 mg/dL (0.2-1.0); CREATININE 3.1 mg/dL (0.5-1.5); MAGNESIUM 2.6 mg/dL (1.80-2.40); POTASSIUM 3.4 mmol/L (3.5-5.1); THYROID STIMULATING HORMONE 3.05 uIU/mL (0.36-3.74); TOTAL PROTEIN, SERUM 6.3 g/dL (6.0-8.3)
[2018-10-21 06:49] LABS: % IRON SATURATION 7.6 % (22-44)
[2018-10-21 07:18] LABS: B-TYPE NATRIURETIC PEPTIDE 3560 pg/mL (0-100)
--- NOTE | 2018-10-21 08:00 | NUR ---
PT AAO X 3 REVIEW PLAN OF CARE. AND FALL RISK . DENIES ANY CHEST PAIN AND CALL LIGHT IN REACH..
[2018-10-21] MEDS ORDERED: FUROSEMIDE 10 MG/ML 2ML VIAL IVP SCH (10:15)
[2018-10-21] MEDS: HEPARIN SODIUM 5000UNIT/ML 1ML VIAL SQ SCH ×2 (10:21→21:53)
[2018-10-21 11:30] LABS: ABG BASE EXCESS -1.4 mmol/L (-2.0-3.0); ABG OXYGEN SATURATION 97.6 % (95.0-99.0); ABG PCO2 30 mmHg (32-45)
--- NOTE | 2018-10-21 12:20 | NUR ---
DR. MOCTEZUMA HERE AND UPDATE . PT CONSULTATION . DR Shakir MOCTEZUMA AWARE OF LABS , BUN OF 96 . CR. 3.1 TODAY. WITH LABS FOR AM. . RECOMMANDATIONS . A CARDIOLIST. TO SEE PT FOR THE CHF.
[2018-10-21] MEDS: FUROSEMIDE 10 MG/ML 2ML VIAL IV SCH ×2 (13:31→19:06)
--- NOTE | 2018-10-21 14:58 | NUR ---
[facility] CONSULT PATIENT ASSESSED REQUESTED: PATIENT PRESENTS WITH VENOUS ULCER TO RT PRE TIB AND MULTIPLE SCABS THROUGHOUT ENTIRE BODY; [facility] RECOMMENDATIONS SUBMITTED. Addendum: 10/21/18 at 1501 by NORBERT DORMAN LVN LVN W Amended: Links added.
--- NOTE | 2018-10-21 15:00 | NUR ---
RD Notification Pt tolerating 75gm, Heart Healthy diet with 1.5L Fluid Restriction. Pt with altered renal labs; Recommend to modify to Renal non-dialysis diet. Pt with Fair PO (75%) as per Pt at time of visit. Pt LBM 10/19/18. Pt monitored labs: K 3.4, BUN 97, Cr 3.1, GFR 15, Glu 66, UA 13.0, Ca 8.3, Mg 2.60, Fe 22, %Sat 7.6, Alb 2.7. Noted 3+ BLE pitting edema. RD to continue to monitor. Please notify RD as additional nutrition concerns arise. Thank you. Addendum: 10/21/18 at [address] Amended: Links added.
--- NOTE | 2018-10-21 15:30 | NUR ---
CONSULT DR. BOBBY DRAPERY INSPECTOR CALLED BACK REGARDING CONSULT. LABS AND CARDIAC HISTORY REVIEW AND HEART . RHYTHM .. WILL BE COMING TO SEE PT .
[2018-10-21] MEDS ORDERED: PHARMACY COMMUNICATION MISC SCH (19:00)
[2018-10-21] MEDS ORDERED: DIPHENHYDRAMINE HCL 2% 30 GM CREAM.GM. TP PRN (19:45)
[2018-10-21] MEDS: INSULIN GLARGINE 100 UNITS/ML 10 ML VIAL SQ SCH (21:54)
[2018-10-21] MEDS: HONEY 1 APPL/ML TUBE TP PRN (22:06)
[2018-10-22] MEDS: FUROSEMIDE 10 MG/ML 2ML VIAL IV SCH ×4 (00:21→18:11)
[2018-10-22 03:51] VITALS: BP 111/54
[2018-10-22] MEDS: INSULIN HUMULIN R 100 UNIT/ML 3ML SQ SCH ×4 (06:20→21:20)
[2018-10-22 07:00] VITALS: BP 98/52
--- NOTE | 2018-10-22 08:00 | NUR ---
PT . LABS FROM ADMISSION WITH A HIGH BUN AND CR. PT HAS DR. MOCTEZUMA IN HER CASE ,AND AWARE OF LABS . DIRECTED CARE . FOLLOW. . PT .
[2018-10-22 08:57] LABS: CREATININE 3.4 mg/dL (0.5-1.5); POTASSIUM 3.8 mmol/L (3.5-5.1)
[2018-10-22 11:00] VITALS: BP 114/70
[2018-10-22] MEDS: HEPARIN SODIUM 5000UNIT/ML 1ML VIAL SQ SCH ×2 (12:25→21:19)
--- NOTE | 2018-10-22 12:51 | NUR ---
BLOOD SUGAR OF 58, WITH O.J. X 2 GIVEN WITH A RECHECK BACK TO 164 PT EATING . HER LUNCH
[2018-10-22] MEDS ORDERED: COMPOUND IV MISC 1 EACH IVSOLN MISC PRN (13:45)
--- NOTE | 2018-10-22 14:30 | NUR ---
DR ABRAMS, NOT KANU!!! SPOKE TO SON AND PT AT BEDSIDE, STATES THEY DO NOT SEE DR. BOBBY, THEY SEE DR. ABRAMS, WANT THE CONSULT CHANGED, INFORMED PRIMARY RN, CONTACTED SIDNEY, PENDING CALL BACK,
--- NOTE | 2018-10-22 14:39 | NUR ---
INITIAL MET W SON GAGE BROWN AT BEDSIDE. PT VERY QUIET, ALMOST LETHARGIC. SON CONFIRMS THAT THE MAIN SYMPTOMS PRIOR TO ADMIT WAS SWELLING. STATES PT LIVES W SPOUSE, CONFIRMED PHONE #, STATES HIS PARENTS ONLY HAVE LAND LINE, HOUSE HAS 2 STEP OUTSIDE, OTHERWISE ACCESSIBLE, HAS SHOWER CHAIR , AMBULATES W ROLLING WALKER MOST OF THE TIME; HAS [id number]+ HRS/WK, MOSTLY INDEPENDENT IN ADLS. FACE SHEET LISTS SIBLING RACHEL BROWN POA, [facility]- SON LIVES IN [place], TRAVELS TO SEE PARENTS EVERY OTHER WEEK OF SO TO KEEP AN EYE ON THEM. DCP IS HOME . STATES THEY HAVE GIVEN INFO RE ENVIRONMENTAL SERVICES TECHNICIAN TO THE ADMITTING STAFF AND THE NURSES AND WANT TO BE SURE DR. ABRAMS IS CALLED Addendum: 10/23/18 at 1236 by JULIUS LOZOYA RN CM Amended: Links added.
[2018-10-22 16:00] VITALS: BP 111/63
--- NOTE | 2018-10-22 17:15 | NUR ---
DR. BOBBY CALLED BACK AND UPDATE OF THE CONSULTATION , REMOVE FROM HIS DR. CLAROS
[2018-10-22] MEDS: GUAIFENESIN-DM 200/20 MG 10 ML PO PRN (18:11)
--- NOTE | 2018-10-22 18:12 | NUR ---
CONSULT HEART CLINIC . FOR PT. STATED THAT DR. ABRAMS TAKES CARE OF HER HEART HEART CLINIC .
--- NOTE | 2018-10-22 18:30 | NUR ---
DR. JACOB COX INFECTION CONTROL SPECIALIST UPDATE OF PT . HISTORY , AND CONSULATIONS . PLACED ON HIS DRShakir LIST .
[2018-10-22 20:15] VITALS: BP 94/50
[2018-10-22] MEDS: INSULIN GLARGINE 100 UNITS/ML 10 ML VIAL SQ SCH (21:20)
[2018-10-22 23:59] VITALS: BP 133/49
[2018-10-23] VITALS (16 sets, daily range): BP systolic 100–127; BP diastolic 46–75
[2018-10-23] MEDS: FUROSEMIDE 10 MG/ML 2ML VIAL IV SCH ×5 (00:10→23:59)
[2018-10-23] MEDS: GUAIFENESIN-DM 200/20 MG 10 ML PO PRN ×4 (00:12→22:31)
--- NOTE | 2018-10-23 03:15 | NUR ---
NAUSEA Pt c/o nausea,medicated with Zofran iv.
--- NOTE | 2018-10-23 04:15 | NUR ---
MED EFFECT Pt denies nausea.
[2018-10-23 05:21] LABS: HEMATOCRIT 35.9 % (36-48); MEAN CORPUSCULAR HEMOGLOBIN 25.7 pg (27.0-33.0); MEAN CORPUSCULAR HGB CONC 32.6 g/dL (32.0-36.0); MEAN CORPUSCULAR VOLUME 78.9 fL (79-99); NUCLEATED RED BLOOD CELLS 0.1 % (0.0-0.19); PLATELET COUNT (AUTO) 185 K/uL (130-400); RED BLOOD CELL COUNT(AUTO) 4.55 MIL/uL (4.00-5.50); RED CELL DISTRIBUTION WIDTH 17.6 % (11.0-15.5); WHITE BLOOD COUNT (AUTO) 8.3 K/uL (4.8-10.8)
[2018-10-23 05:27] LABS: ALBUMIN 2.7 g/dL (3.5-5.0); BILIRUBIN,TOTAL 1.2 mg/dL (0.2-1.0); CREATININE 3.5 mg/dL (0.5-1.5); MAGNESIUM 2.7 mg/dL (1.80-2.40); POTASSIUM 4.2 mmol/L (3.5-5.1); TOTAL PROTEIN, SERUM 6.5 g/dL (6.0-8.3)
[2018-10-23 05:34] LABS: B-TYPE NATRIURETIC PEPTIDE 3140 pg/mL (0-100)
[2018-10-23] MEDS: INSULIN HUMULIN R 100 UNIT/ML 3ML SQ SCH ×4 (05:59→21:00)
--- NOTE | 2018-10-23 07:17 | NUR ---
MD Dr JAMES came to see pt.He wants pt transferred to PCCU for Dobutamine infusion,notified pond supervisor Leah Cho Rn.Report given to Elvin PITTMAN.
[2018-10-23] MEDS ORDERED: IRON SUCROSE COMPLEX 100 MG in SODIUM CHLORIDE 0.9% 50 ML IV SCH (09:00)
[2018-10-23] MEDS: DOBUTAMINE HCL 250 MG in SODIUM CHLORIDE 0.9% 250 ML IV PRN (09:29)
--- NOTE | 2018-10-23 09:30 | NUR ---
INFORMED CHARGE, DIRECTOR AND DON THAT PATIENT HAD ORDERS TO TRANSFER TO PCCU. PATIENT WAS STARTED ON IV DOBUTAMINE PER MD ORDERS DR. JAMES AND TRANSFER TO PCCU. DENTAL FRONT OFFICE ASSISTANT NOTIFIED OF ORDERS. MAIA DIRECTOR STARTED IV FIRST DOSE OF DOBUTAMINE ON FLOOR. NURSE MONTORING PATIENT BLOOD PRESSURE. PATIENT AWAKE AND ALERT, VOICES NO COMPLAINTS.
[2018-10-23] MEDS: HEPARIN SODIUM 5000UNIT/ML 1ML VIAL SQ SCH ×2 (09:44→22:13)
[2018-10-23] MEDS: CARVEDILOL 3.125 MG TABLET PO SCH ×2 (09:45→22:07)
--- NOTE | 2018-10-23 18:00 | NUR ---
REPORT GIVEN TO YANE JAMA IN PCCU. PATIENT IN NO DISTRESS NOTED.
--- NOTE | 2018-10-23 20:05 | NUR ---
rECEIVED PT. ON dOBUTAMINE DRIP @2MCG/KG/MIN.pT. NOTED TO HAVE PERSISTENT COUGH.SON TO BEDSIDE.
[2018-10-23] MEDS: INSULIN GLARGINE 100 UNITS/ML 10 ML VIAL SQ SCH (22:14)
--- NOTE | 2018-10-23 22:34 | NUR ---
pPt. continue to have persistent cough prn robitussin given and RT notified for c/o shortness of breath as well.Will continue to monitor pt.
[2018-10-23] MEDS: IPRATROPIUM/ALBUTEROL SULFATE 3 ML SOLUTION IH PRN (23:18)
[2018-10-24 00:04] VITALS: BP 101/49
[2018-10-24 03:46] LABS: HEMATOCRIT 32.3 % (36-48); MEAN CORPUSCULAR HEMOGLOBIN 25.7 pg (27.0-33.0); MEAN CORPUSCULAR HGB CONC 32.6 g/dL (32.0-36.0); MEAN CORPUSCULAR VOLUME 78.9 fL (79-99); NUCLEATED RED BLOOD CELLS 0.1 % (0.0-0.19); PLATELET COUNT (AUTO) 144 K/uL (130-400); RED BLOOD CELL COUNT(AUTO) 4.09 MIL/uL (4.00-5.50); RED CELL DISTRIBUTION WIDTH 17.4 % (11.0-15.5); WHITE BLOOD COUNT (AUTO) 7.8 K/uL (4.8-10.8)
[2018-10-24 04:00] LABS: ABG BASE EXCESS -0.3 mmol/L (-2.0-3.0); ABG HCO3 23.5 mmol/L (21.0-28.0); ABG PCO2 36 mmHg (32-45)
[2018-10-24] MEDS ORDERED: DOBUTAMINE 250MG/D5 250ML 250 ML IV ONE (04:24)
[2018-10-24 04:33] LABS: ALBUMIN 2.5 g/dL (3.5-5.0); BILIRUBIN,TOTAL 1.1 mg/dL (0.2-1.0); CREATININE 3.4 mg/dL (0.5-1.5); MAGNESIUM 2.7 mg/dL (1.80-2.40); PHOSPHORUS 5.4 mg/dL (2.5-4.9); POTASSIUM 3.4 mmol/L (3.5-5.1); THYROID STIMULATING HORMONE 2.45 uIU/mL (0.36-3.74); TOTAL PROTEIN, SERUM 5.8 g/dL (6.0-8.3)
[2018-10-24] MEDS: DOBUTAMINE HCL 250 MG in SODIUM CHLORIDE 0.9% 250 ML IV PRN (04:43)
[2018-10-24 04:48] VITALS: BP 110/56
[2018-10-24] MEDS: FUROSEMIDE 10 MG/ML 2ML VIAL IV SCH ×3 (06:16→17:07)
[2018-10-24] MEDS: INSULIN HUMULIN R 100 UNIT/ML 3ML SQ SCH ×4 (06:17→21:00)
[2018-10-24] MEDS ORDERED: POTASSIUM CHLORIDE 20 MEQ ERTAB PO ONE (06:20)
--- NOTE | 2018-10-24 07:26 | NUR ---
Pt.slept for the most partof the night,B/S=51and was given apple juice rechecked blood sugar was 142.No S/Shypoglycemia noted.Report given to incoming NOD using SBAR all questions answered.
[2018-10-24 07:51] VITALS: BP 106/60
--- NOTE | 2018-10-24 08:04 | NUR ---
Kelly IRENE PA-C, IN ROOM SPEAKING WITH PT. AND PT.'S SON AT BEDSIDE RE:PLAN OF CARE. QUESTIONS ANSWERED BY Kelly GERONIMO PA-C.
[2018-10-24] MEDS: CARVEDILOL 3.125 MG TABLET PO SCH ×2 (09:01→20:16)
[2018-10-24] MEDS: HEPARIN SODIUM 5000UNIT/ML 1ML VIAL SQ SCH ×2 (09:04→20:33)
[2018-10-24 11:49] VITALS: BP 114/61
[2018-10-24] MEDS: GUAIFENESIN-DM 200/20 MG 10 ML PO PRN ×2 (12:18→16:54)
--- NOTE | 2018-10-24 15:19 | NUR ---
DOBUTAMINE GTT INCREASED ORDERED.
[2018-10-24 15:24] VITALS: BP 127/63
[2018-10-24] MEDS ORDERED: DOBUTAMINE HCL 250 MG in SODIUM CHLORIDE 0.9% 250 ML IV PRN (15:30)
--- NOTE | 2018-10-24 16:13 | NUR ---
DR. STYLES IN ROOM SPEAKING WITH PT. AND FAMILY MEMBERS AT BEDSIDE.
[2018-10-24] MEDS: BENZONATATE 100 MG CAPSULE PO SCH ×2 (17:06→20:16)
[2018-10-24 17:27] LABS: APPEARANCE,URINE Clear (CLEAR); BILIRUBIN,URINE Negative (NEGATIVE); COLOR,URINE Yellow (YELLOW); GLUCOSE, URINE (UA) Negative (NEGATIVE); KETONES,URINE Negative (NEGATIVE); LEUKOCYTE ESTERASE ,URINE Moderate (NEGATIVE); NITRATE,URINE Negative (NEGATIVE); OCCULT BLOOD,URINE Negative (NEGATIVE); PROTEIN,URINE Negative (NEGATIVE)
[2018-10-24 17:35] LABS: BACTERIA,URINE Rare /HPF (None Seen); RBC,URINE 0-1 /HPF (0-1); SQUAMOUS EPITHELIAL CELL,UR Rare /HPF (0-2)
[2018-10-24] MEDS: HONEY 1 APPL/ML TUBE TP PRN (18:06)
[2018-10-24 19:42] VITALS: BP 138/62
[2018-10-24] MEDS: INSULIN GLARGINE 100 UNITS/ML 10 ML VIAL SQ SCH (20:34)
[2018-10-25] VITALS: BP 124/84
[2018-10-25] MEDS: FUROSEMIDE 10 MG/ML 2ML VIAL IV SCH ×2 (00:53→06:15)
[2018-10-25] MEDS ORDERED: DOBUTAMINE 250MG/D5 250ML 250 ML IV ONE (01:30)
[2018-10-25 03:58] VITALS: BP 116/68
[2018-10-25 04:07] LABS: BASOPHILS % (AUTO) 0.8 % (0.0-5.0); EOSINOPHILS % (AUTO) 3.2 % (0.0-8.0); LYMPHOCYTES % (AUTO) 8.4 % (21.0-51.0); MEAN CORPUSCULAR HEMOGLOBIN 25.9 pg (27.0-33.0); MEAN CORPUSCULAR HGB CONC 33.1 g/dL (32.0-36.0); MEAN CORPUSCULAR VOLUME 78.2 fL (79-99); NEUTROPHILS % (AUTO) 79.6 % (40.0-77.0); NUCLEATED RED BLOOD CELLS 0.1 % (0.0-0.19); PLATELET COUNT (AUTO) 160 K/uL (130-400); RED BLOOD CELL COUNT(AUTO) 3.97 MIL/uL (4.00-5.50); RED CELL DISTRIBUTION WIDTH 17.6 % (11.0-15.5); WHITE BLOOD COUNT (AUTO) 8.9 K/uL (4.8-10.8)
[2018-10-25 04:27] LABS: CREATININE 2.9 mg/dL (0.5-1.5)
[2018-10-25] MEDS ORDERED: POTASSIUM CHLORIDE 20 MEQ ERTAB PO ONE (06:06)
[2018-10-25] MEDS: INSULIN HUMULIN R 100 UNIT/ML 3ML SQ SCH ×4 (06:15→21:54)
[2018-10-25] MEDS ORDERED: POTASSIUM CHLORIDE 20 MEQ ERTAB PO SCH (06:15)
[2018-10-25 07:00] VITALS: BP 134/65
[2018-10-25] MEDS ORDERED: DOBUTAMINE 250MG/D5 250ML 250 ML IV SCH (07:30)
[2018-10-25] MEDS ORDERED: DOBUTAMINE HCL 250 MG in SODIUM CHLORIDE 0.9% 250 ML IV PRN (07:45)
[2018-10-25] MEDS: BENZONATATE 100 MG CAPSULE PO SCH ×3 (09:22→21:03)
[2018-10-25] MEDS: HEPARIN SODIUM 5000UNIT/ML 1ML VIAL SQ SCH ×2 (09:23→21:57)
[2018-10-25] MEDS: FUROSEMIDE 40 MG TABLET PO SCH ×2 (10:38→18:41)
[2018-10-25 11:00] VITALS: BP 127/58
[2018-10-25 16:00] VITALS: BP 128/66
[2018-10-25 16:11] LABS: MAGNESIUM 2.4 mg/dL (1.80-2.40)
[2018-10-25 20:47] VITALS: BP 104/58
[2018-10-25] MEDS: INSULIN GLARGINE 100 UNITS/ML 10 ML VIAL SQ SCH (21:58)
[2018-10-25] MEDS: IPRATROPIUM/ALBUTEROL SULFATE 3 ML SOLUTION IH PRN (22:39)
[2018-10-26] VITALS (7 sets, daily range): BP systolic 102–128; BP diastolic 56–67
--- NOTE | 2018-10-26 | NUR ---
SOB PT C/O SOB. AUDIBLE WHEEZES. RT CALLED AND NEB TX GIVEN. IMPROVEMENT OF SOB.
--- NOTE | 2018-10-26 02:30 | NUR ---
PATIENT CALLED PATIENT HAD A SOAKED DIAPER BRIEF AND SOILED BED. UNABLE TO MEASURE URINE OUTPUT. PATIENT AND BED CHANGED.
[2018-10-26 04:33] LABS: POTASSIUM 3.7 mmol/L (3.5-5.1)
[2018-10-26] MEDS: INSULIN HUMULIN R 100 UNIT/ML 3ML SQ SCH ×4 (05:58→21:00)
[2018-10-26] MEDS: BENZONATATE 100 MG CAPSULE PO SCH ×3 (09:33→20:11)
[2018-10-26] MEDS: FUROSEMIDE 40 MG TABLET PO SCH ×2 (09:33→17:31)
[2018-10-26] MEDS: HEPARIN SODIUM 5000UNIT/ML 1ML VIAL SQ SCH ×2 (09:36→20:28)
[2018-10-26] MEDS ORDERED: AZITHROMYCIN 250 MG TABLET PO SCH (11:00)
--- NOTE | 2018-10-26 13:44 | NUR ---
Nutrition Follow-up: Pt. on 75gm CCD Gen. Heart Healthy Low K+ JASMIN diet, 1500ml F.R. Pt. reports good p.o. intake. Labs reviewed(Alb 2.5, BUN 90, Creat 3.0, GFR 16, BG 112). Pt. with moderate visceral protein depletion. Protein supplementation contraindicated due to elevated renal labs. As per MD notes, pt. not a good candidate for HD due to advanced cardiomyopathy. Recommendations: 1) Rec. add Renal Non Dialysis diet modification to current diet due to elevated renal labs. 2) Continue to monitor pt's nutritional status. 3) Consult RD as nutrition concerns arise. Addendum: 10/26/18 at [address] Amended: Links added.
[2018-10-26] MEDS: IPRATROPIUM/ALBUTEROL SULFATE 3 ML SOLUTION IH PRN (18:28)
[2018-10-26] MEDS: INSULIN GLARGINE 100 UNITS/ML 10 ML VIAL SQ SCH (20:28)
[2018-10-27 03:58] LABS: HEMATOCRIT 33.4 % (36-48); MEAN CORPUSCULAR HEMOGLOBIN 25.4 pg (27.0-33.0); MEAN CORPUSCULAR HGB CONC 32.5 g/dL (32.0-36.0); MEAN CORPUSCULAR VOLUME 78.2 fL (79-99); NUCLEATED RED BLOOD CELLS 0.1 % (0.0-0.19); PLATELET COUNT (AUTO) 153 K/uL (130-400); RED BLOOD CELL COUNT(AUTO) 4.27 MIL/uL (4.00-5.50); RED CELL DISTRIBUTION WIDTH 17.6 % (11.0-15.5); WHITE BLOOD COUNT (AUTO) 8.3 K/uL (4.8-10.8)
[2018-10-27 04:17] LABS: CREATININE 2.7 mg/dL (0.5-1.5); POTASSIUM 3.6 mmol/L (3.5-5.1)
[2018-10-27 04:28] VITALS: BP 101/58
[2018-10-27] MEDS: INSULIN HUMULIN R 100 UNIT/ML 3ML SQ SCH ×2 (05:43→11:30)
[2018-10-27 07:00] VITALS: BP 128/75
[2018-10-27] MEDS: IPRATROPIUM/ALBUTEROL SULFATE 3 ML SOLUTION IH PRN (07:37)
[2018-10-27] MEDS ORDERED: AZITHROMYCIN 250 MG TABLET PO SCH (09:00)
[2018-10-27] MEDS: BENZONATATE 100 MG CAPSULE PO SCH ×2 (09:27→14:21)
[2018-10-27] MEDS: FUROSEMIDE 40 MG TABLET PO SCH (09:27)
[2018-10-27] MEDS: HEPARIN SODIUM 5000UNIT/ML 1ML VIAL SQ SCH (09:29)
[2018-10-27 11:00] VITALS: BP 133/83
== END 2018-10-27 15:54 | disposition home or self-care (01) | DRG 291 ==
LOC: EDH 10:32 → EDHIP 14:31 → OBSVTOIN 14:31 → INTOOBSV 14:31 → 3CH 22:00 → 2AH 10-23 20:17
PROVIDERS: ADMIT Internal Medicine; ATTEND Internal Medicine
PROC: 4B02XTZ Measurement of Cardiac Defibrillator, External Approach (ICD-10-PCS; principal; 2018-10-23)
DX: I13.2 Hypertensive heart and chronic kidney disease with heart failure and with stage 5 chronic kidney disease, or end stage renal disease (principal); I50.43 Acute on chronic combined systolic (congestive) and diastolic (congestive) heart failure; N18.6 End stage renal disease; N17.9 Acute kidney failure, unspecified; I25.5 Ischemic cardiomyopathy; D63.8 Anemia in other chronic diseases classified elsewhere; E11.22 Type 2 diabetes mellitus with diabetic chronic kidney disease; E78.5 Hyperlipidemia, unspecified; I25.10 Atherosclerotic heart disease of native coronary artery without angina pectoris; I27.20 Pulmonary hypertension, unspecified; Z79.02 Long term (current) use of antithrombotics/antiplatelets; Z79.4 Long term (current) use of insulin; Z79.899 Other long term (current) drug therapy; Z82.0 Family history of epilepsy and other diseases of the nervous system; Z82.3 Family history of stroke; Z82.49 Family history of ischemic heart disease and other diseases of the circulatory system; Z82.5 Family history of asthma and other chronic lower respiratory diseases; Z83.3 Family history of diabetes mellitus; Z90.710 Acquired absence of both cervix and uterus; Z95.810 Presence of automatic (implantable) cardiac defibrillator; Z95.1 Presence of aortocoronary bypass graft; Z79.84 Long term (current) use of oral hypoglycemic drugs
CPT/HCPCS: 36415; 36600; 71045; 71046; 76770; 80048; 80053; 80076; 81001; 82550; 82728; 82803; 82948; 83540; 83550; 83605; 83690; 83735; 83880; 84100; 84132; 84443; 84484; 84550; 85025; 85027; 85610; 85730; 93005; 93970; 94640; 94664; G0378; J1250; J1644; J1756; J1815; J1940; J2060; J2405; J3490; J7030

== ENCOUNTER → 2019-04-17 | Outpatient (CLI) | payer OTHER ==
[2019-04-17] MEDS: REGADENOSON 0.4 MG/5 ML PF SYG IVP SCH (13:49)
== END | disposition home or self-care (01) ==
LOC: SHCH 08:31
PROVIDERS: ATTEND Internal Medicine Cardiovascular Disease
DX: I25.89 Other forms of chronic ischemic heart disease (principal); I21.19 ST elevation (STEMI) myocardial infarction involving other coronary artery of inferior wall; I21.29 ST elevation (STEMI) myocardial infarction involving other sites; I20.9 Angina pectoris, unspecified
CPT/HCPCS: 78452; 93017; 96374; A9500 ×2; J2785

== ENCOUNTER 2019-11-24 07:00 | Day surgery (SDC) | payer OTHER ==
[2019-11-20 11:03] LABS: BASOPHILS % (AUTO) 1.1 % (0.0-5.0); EOSINOPHILS % (AUTO) 4.3 % (0.0-8.0); HEMATOCRIT 34.4 % (36-48); MEAN CORPUSCULAR HEMOGLOBIN 30.3 pg (27.0-33.0); MEAN CORPUSCULAR HGB CONC 33.1 g/dL (32.0-36.0); MEAN CORPUSCULAR VOLUME 91.5 fL (79-99); MONOCYTES % (AUTO) 8.7 % (3.0-13.0); NEUTROPHILS % (AUTO) 69.6 % (40.0-77.0); PLATELET COUNT (AUTO) 116 K/uL (130-400); RED BLOOD CELL COUNT(AUTO) 3.76 MIL/uL (4.00-5.50); RED CELL DISTRIBUTION WIDTH 15.7 % (11.0-15.5)
[2019-11-20 11:32] LABS: CREATININE 3.4 mg/dL (0.5-1.5)
--- NOTE | 2019-11-20 12:11 | NUR ---
RE: CRITICAL LABS INFORMED LIDIA LEBRON REGARDING BUN 110, CREAT 34. PATIENT WITH HX OF CHRONIC KIDNEY DISEASE STAGE IV. NO NEW ORDERS RECEIVED. MAY PROCEED WITH ICD CHANGEOUT WITH DR WHITTAKER.
[2019-11-21 10:02] VITALS: BP 131/63
--- NOTE | 2019-11-21 10:47 | NUR ---
PLATELET INFORMED LIDIA TOM OF ABNORMAL PLATELET LEVEL. NO ORDERS RECEIVED. PROCEED WITH PLANNED PROCEDURE
[2019-11-24] VITALS (10 sets, daily range): BP systolic 105–123; BP diastolic 51–75
[~2019-11-24] VITALS: Ht 157.5 cm; Wt 65.3 kg
[~2019-11-24 07:00] MED LIST changes: -ACAR25TA2 PO; -ALPR0.25 PO; -AMIO200T5 PO; -ASPI-1005 PO; +CARV3.12 PO; -CARV3.1262 PO; +CEFAZOLIN SODIUM 1 GM VIAL IVP SCH; -CHOL100018 PO; -CLOP75TA14 PO; -CYAN50008 SL; -EZET10TA13 PO; -FAMO20TA8 PO; -FOLI1TAB85 PO; -GLIP-196 PO; +INSLAN SQ; -METO5TAB7 PO; -MONT10TA24 PO; -NITR0.4T50 SL; -NPH,100V SQ; +POTA10CA44 PO; -POTA10TA14 PO; +PRAV40TA3 PO; +RENAVITE PO; -ROSU5TAB12 PO; +SODIUM CHLORIDE 0.9% 1000ML 1,000 ML IV SCH; -TRAZ-185 PO
[2019-11-24 07:45] LABS: INR 1.12 (0.85-1.15); PARTIAL THROMBOPLASTIN TIME 27.5 SEC (26.3-35.5)
[2019-11-24] MEDS ORDERED: BUPIVACAINE/PF 0.25% 30ML VIAL IJ ONE (08:55)
[2019-11-24] MEDS ORDERED: CEFAZOLIN SODIUM 1 GM VIAL ONE (08:55)
[2019-11-24] MEDS ORDERED: MIDAZOLAM HCL 1 MG/ML 2ML VIAL ONE ×2 (08:56→09:53)
[2019-11-24] MEDS ORDERED: LIDOCAINE HCL 1% MDV 50ML VIAL ONE (08:56)
[2019-11-24] MEDS ORDERED: MEPERIDINE-PF 25 MG/ML SYG ONE ×2 (08:57→09:52)
[2019-11-24] MEDS ORDERED: ACETAMINOPHEN-CODEINE 300/30MG TAB PO PRN (10:45)
[2019-11-24] MEDS ORDERED: TRAM50TA4 PO (10:47)
--- NOTE | 2019-11-24 11:05 | NUR ---
Pt received Pt received from labor relations teacher via bed acommpanied by EVITA Silverman. Pt awake but drowsy. Had dressing to right upper chest dry and intact. Denies any pain. Daughter in law at bedside. Reviewed bed rest orders with pt and daughter in law. Verbalized understanding. VS wnl. Food tray requested as per MD order.
--- NOTE | 2019-11-24 14:40 | NUR ---
Pt D/C Pt was prepared for discharge. Verbal and written discharge instructions and prescription was given to daughter in law with follow up appointment date and time. Daughter in law verbalized understanding. All questions answered. Monitoring device was given to her. Dressing to right upper chest area continued dry and intact with no bleeding, no swelling noted. Pt denies any pain or discomfort. Pt was taken out of facility via w/c to daughter's in law private vehicle.
== END 2019-11-24 14:50 | disposition home or self-care (01) ==
LOC: DAH 07:00
PROVIDERS: ATTEND Internal Medicine Cardiovascular Disease
DX: Z45.02 Encounter for adjustment and management of automatic implantable cardiac defibrillator (principal); I49.5 Sick sinus syndrome; I25.5 Ischemic cardiomyopathy; E11.22 Type 2 diabetes mellitus with diabetic chronic kidney disease; N18.4 Chronic kidney disease, stage 4 (severe); I50.22 Chronic systolic (congestive) heart failure; E78.5 Hyperlipidemia, unspecified; Z79.01 Long term (current) use of anticoagulants; Z79.899 Other long term (current) drug therapy; Z82.49 Family history of ischemic heart disease and other diseases of the circulatory system; Z98.890 Other specified postprocedural states; Z90.49 Acquired absence of other specified parts of digestive tract; Z95.1 Presence of aortocoronary bypass graft; Z79.4 Long term (current) use of insulin
CPT/HCPCS: 33263; 36415 ×2; 80048; 82948 ×2; 85025; 85610; 85730; A4215; A4216; A4221; A4222; A4223 ×3; A4606; A4663; C1721; J0690; J2175 ×2; J2250 ×2; J3490 ×2; J7030; 99156; 99157